=== PATIENT | female | born 1980 | race Caucasian/White ===

== ENCOUNTER 2020-02-23 08:27 | Emergency (ER) | payer OTHER ==
[~2020-02-23] VITALS: Ht 167.6 cm; Wt 99.3 kg
[2020-02-23 08:32] VITALS: Ht 167.6 cm; Wt 99.3 kg
[2020-02-23 09:31] LABS: CALCIUM 9.3 mg/dL (8.5-10.1); CARBON DIOXIDE 24.9 mmol/L (21-32); CHLORIDE SERUM 101 mmol/L (98-107); CREATININE SERUM 0.8 mg/dL (0.6-1.0); GFR1 > 60 mL/min; GLUCOSE SERUM 107 mg/dL (74-106); POTASSIUM SERUM 3.5 mmol/L (3.5-5.1); SODIUM SERUM 135 mmol/L (136-145)
[2020-02-23 09:44] LABS: BASOPHIL % 0.8 % (0-2); RED CELL DISTRIBUTION WIDTH 13.8 % (11.5-14.5)
[2020-02-23 10:07] LABS: PLATELET COUNT 542 x10^3mcL (130-400)
[2020-02-23 11:05] VITALS: BP 118/68
== END 2020-02-23 11:05 | disposition home or self-care (01) ==
LOC: ED 08:27
PROVIDERS: Emergency Medicine
DX: T81.30XA Disruption of wound, unspecified, initial encounter (principal); T81.49XA Infection following a procedure, other surgical site, initial encounter; B96.5 Pseudomonas (aeruginosa) (mallei) (pseudomallei) as the cause of diseases classified elsewhere

== ENCOUNTER 2020-04-10 09:07 | Inpatient (IN) | payer OTHER ==
[~2020-04-10] VITALS: Ht 167.6 cm; Wt 100.2 kg
--- NOTE | 2020-04-10 09:17 | NUR ---
PT TO BED 5 VIA WHEELCHAIR FROM TRIAGE
[2020-04-10 09:25] VITALS: Ht 167.6 cm; Wt 100.2 kg
--- NOTE | 2020-04-10 09:35 | NUR ---
PT BIB [facility] FROM HOME C/O RASH AND PAIN TO BILATERAL UPPER AND LOWER EXTREMITIES. PT STATES IT STARTED Saturday04/08/2020 WITH A RASH ON THE ARMS, THEN 04/09/2020 PT STARTED HAVING JOINT PAIN 03/12, TOOK BENADRYL FOR THE LAST 2 DAYS WITH NO RELIEF. DENIES ANY OTHER SYMPTOMS. PT AAOX4, NO SOB,NO DISTRESS. CALL LIGHT WITHIN REACH. WILL CONTINUE TO MONITOR PATIENT
--- NOTE | 2020-04-10 10:00 | NUR ---
MD BAHENA AT BEDSIDE WITH MSE
--- NOTE | 2020-04-10 10:47 | NUR ---
LAB AT BEDSIDE FOR BLOOD CULTURES
[2020-04-10 10:49] LABS: BASOPHIL % 0.2 % (0-2); PLATELET COUNT 359 x10^3mcL (130-400); RED CELL DISTRIBUTION WIDTH 13.1 % (11.5-14.5)
--- NOTE | 2020-04-10 10:55 | NUR ---
PT PROVIDED WITH TWO PILLOWS FOR ARMS AND NEW BLANKET. PT STATES PAIN MEDICATION IS WORKING HER PAIN IS NOW 8/10. PT IS AAOX4, NO DISTRESS, NO SOB. WILL CONTINUE TO MONITOR PATIENT. CALL LIGHT WITHIN REACH
[2020-04-10 11:02] LABS: ALBUMIN 3.6 g/dL (3.4-5.0); ALKALINE PHOSPHATASE 80 U/L (46-116); ALT/SGPT 19 U/L (14-59); AST/SGOT 13 U/L (15-37); BILIRUBIN TOTAL 0.3 mg/dL (0.20-1.00); C REACTIVE PROTEIN 10.4 mg/dL (<=0.9); CALCIUM 8.8 mg/dL (8.5-10.1); CARBON DIOXIDE 27.5 mmol/L (21-32); CHLORIDE SERUM 102 mmol/L (98-107); CREATININE SERUM 0.8 mg/dL (0.6-1.0); GFR1 > 60 mL/min; GLUCOSE SERUM 108 mg/dL (74-106); SODIUM SERUM 137 mmol/L (136-145); TOTAL PROTEIN, SERUM 6.9 g/dL (6.4-8.2)
[2020-04-10 11:04] LABS: POTASSIUM SERUM 2.9 mmol/L (3.5-5.1)
--- NOTE | 2020-04-10 11:18 | NUR ---
XRAY AT BEDSIDE
--- NOTE | 2020-04-10 12:07 | NUR ---
PT ASSISTED TO RESTROOM WAS ABLE TO AMBULATE WITH STEADY GAIT. PT PLACED BACK ON MONITOR. PROVIDED WITH WATER. PT AAOX4, NO DISTRESS, NO SOB. WILL CONTINUE TO MONITOR. CALL LIGHT WITHIN REACH
--- NOTE | 2020-04-10 12:09 | NUR ---
PT STATES PAIN TO RIGHT HAND AND LEGS IS BETTER. CONTINUES TO HAVE PAIN 10/10 TO LEFT ARM. WILL CONTINUE TO MONITOR PATIENT. CALL LIGHT WITHIN REACH
[2020-04-10 12:12] LABS: microscopic required? NO
--- NOTE | 2020-04-10 12:23 | NUR ---
SPOKE WITH TOMASA FROM [employer], SHE STATED SHE WILL SPEAK WITH HER DOCTOR.
[2020-04-10 12:31] LABS: ERYTHROCYTE SED RATE 46 mm/hr (0-20)
[2020-04-10 12:37] LABS: UA SPECIFIC GRAVITY 1.015 (1.005-1.035); urine erythrocyte NEGATIVE (NEGATIVE)
--- NOTE | 2020-04-10 14:03 | NUR ---
DR BAHENA AT BEDSIDE SPEAKING TO PT REGARDING TEST RESULTS AND POC. PT INFORMED DR BAHENA REGARDING INCR IN PAIN
--- NOTE | 2020-04-10 14:35 | NUR ---
AMB TO RESTROOM WITH STEADY GAIT
--- NOTE | 2020-04-10 14:49 | NUR ---
PT REQUESTING BENADRYL. PER DR BAHENA OK TO ADM MORPHINE DESPITE BP MAP 67. PT DENIES FEELING WEAKNESS, DIZZINESS, TIREDNESS
--- NOTE | 2020-04-10 16:10 | NUR ---
REPORT GIVEN TO HARSH
[2020-04-10 16:16] VITALS: BP 100/65
--- NOTE | 2020-04-10 16:16 | NUR ---
RECEIVED REPORT FROM ER NURSE KHAI MARMOLEJO. PATIENT IS RESTING IN BED, AAO TIMES 4. TELE #10 SHOWING NSR. DENIES CP/CARDIAC DISCOMFORT. PULSES STRONG IN ALL EXTREMITIES. TRACE EDEMA BLE. RESPIRATIONS EVEN AND UL ON RA. LUNG SOUNDS CTAB. ABD SOFT AND FLAT, NON-TENDER, BS ACTIVE IN ALL QUADRANTS. DENIES N/V/D. VOIDS FREELY. AMBULATORY WITHOUT ASSISTANCE. PATIENT HAS RASHES ON BUE, PHOTOGRAPHS TAKEN AND PLACED IN CHART. SKIN INTACT. IV SL TO L HAND, PATENT AND INTACT, NO SWELLING OR ERYTHEMA AT SITE, FLUSHING WELL. CALM AND COOPERATIVE. BED IN LOW POSITION, CALL LIGHT IN REACH, SAFETY MEASURES IN PLACE. WILL CONTINUE TO MONITOR.
--- NOTE | 2020-04-10 16:55 | NUR ---
PATIENT C/O PAIN TO L SHOULDER, ADMINISTERED PRN TYLENOL PER ORDER.
--- NOTE | 2020-04-10 18:50 | NUR ---
PATIENT C/O PAIN TO L SHOULDER AND ALL JOINTS. PAGED [facility] ON-CALL. PATIENT RESTING IN BED, RESPIRATION EVEN AND UL ON RA. DENIES CP/CARDIAC DISCOMFORT. NO ACUTE CHANGES THROUGHOUT SHIFT. BED IN LOW POSITION, CALL LIGHT IN REACH, SAFETY MEASURES IN PLACE. WILL CONTINUE TO MONITOR AND ENDORSE TO ONCOMING NIGHT NURSE.
--- NOTE | 2020-04-10 19:30 | NUR ---
RECEIVED PT FROM AM NURSE AT THIS TIME. AA/O X 4, ABLE TO MAKE NEEDS KNOWN, CLEAR SPEECH, DENIES HEADACHE/ DENIES DIZZINESS. TELE MONITOR #10, NSR, DENIES CHEST PAIN/ CHEST PRESSURE. PULSES PALPABLE, TRACE EDEMA TO BLE. LUNG SOUNDS CTA, RESPIRATIONS E/U ON RA. DENIES SOB. ACTIVE BS X 4 QUADS, ABD SOFT AND FLAT S/P TUMMY TUCK IN . DENIES N/V/D. VOIDS FREELY, BRP. RASH TO BUE, PINK AND ITCHY PER PT. IV TO LH SL, FLUSHES WELL, NO ERYTHEMA, NO INFILTRATION. PT HAVING LEFT SHOULDER JOINT PAIN. WILL PAGE YARD SUPERVISOR DOCTOR FOR ORDERS. ALL CONCERNS ADDRESSED, CALL BUTTON WITHIN REACH, WILL CONTINUE TO MONITOR.
[2020-04-10 19:53] VITALS: BP 89/54
[2020-04-10 19:55] VITALS: BP 100/63
--- NOTE | 2020-04-10 20:24 | NUR ---
PT COMPLAINING OF PAIN AND ITCHINESS. JIVE DEVELOPER DOCTOR PAGED. SPOKE WITH DR. JOHN. NEW ORDERS RECEIVED: BENADRYL 25 MG PO q6H PRN FOR ITCHINESS, TRAMADOL 50 MG PO q6H FOR PAIN. INFORMED DR. JOHN OF K OF 2.9 THIS MORNING AT 10 AM, ER REPLACED WITH 1 TAB PO OF KLOR-CON M20 40 MEQ AT 12:02, ASKED IF HE WANTED TO ORDER A REPEAT DRAW TO REPLACE K TONIGHT IV, DR. JOHN STATED NO, TO WAIT UNTIL 500 AM DRAW ON 04/11/20 IS FINE. NEW ORDERS RECEIVED AND CARRIED OUT. WILL CONTINUE TO MONITOR.
--- NOTE | 2020-04-10 20:47 | NUR ---
PT RECEIVED PRN TRAMADOL AND PRN BENADRYL AND SCHEDULED MEDS AT THIS TIME. WILL CONTINUE TO MONITOR FOR EFFECTIVENESS OF PRNS.
--- NOTE | 2020-04-10 23:01 | NUR ---
PAIN MEDICATION INEFFECTIVE. PAGED HUMAN RESOURCE MANAGER DOCTOR TWICE, AWAITING CALL BACK. WILL CALL A THIRD TIME.
--- NOTE | 2020-04-10 23:22 | NUR ---
CALL BACK RECEIVED FROM ON-CALL DR. JOHN, NEW ORDERS RECEIVED AND CARRIED OUT. TORADOL 30 MG IVP Q6H PRN AND BENADRYL 25 MG IVP GIVEN. PT AWAKE AT THIS TIME AND IN PAIN, STATES JOINT IN KNEES AND LEFT SHOULDER ARE STIFF, IT IS DIFFICULT FOR HER TO EXTEND HER ARM STRAIGHT. RESPIRATIONS E/U ON ROOM AIR, DENIES DIFFICULTY BREATHING, DENIES CHEST PAIN. TELE MONITOR #10, NSR, HR 91 BPM. CALL BUTTON WITHIN REACH, WILL CONTINUE TO MONITOR AND MANAGE PAIN.
--- NOTE | 2020-04-11 00:28 | NUR ---
CALLED [employer]PER[employer] DR. JOHN TO UPDATE- PT'S RASH IS SPREADING. RASH IS TO BUE, MOSTLY ON THE RIGHT EXTREMITY. COLOR WENT FROM LIGHT PINK AT BEGINNING OF SHIFT TO RED. RASH ALSO TO PT'S REAR END AND BACK OF RIGHT THIGH/ RIGHT LEG. PICTURES IN CHART. PT ALREADY ON SOLU-MEDROL BID. VS STABLE. DR. JOHN STATED NO NEW ORDERS AT THIS TIME, CONTINUE TO MONITOR RASH. WILL CONTINUE TO MONITOR.
[2020-04-11 05:48] VITALS: BP 101/64
--- NOTE | 2020-04-11 06:38 | NUR ---
PT COMPLAINED OF PAIN/ JOINT STIFFNESS. IV PRN TORADOL GIVEN. PT ALSO RECEIVED IV PRN BENADRYL FOR ITCHINESS. PT STATED IV SITE IN HAND IS GIVING DISCOMFORT. NO INFILTRATION, FLUSHING WELL. WILL ATTEMPT NEW IV START. NO ACUTE CHANGES OVERNIGHT, CALL LIGHT WITHIN REACH, WILL ENDORSE CARE TO AM NURSE.
[2020-04-11 06:48] LABS: BASOPHIL % 0.1 % (0-2); PLATELET COUNT 363 x10^3mcL (130-400); RED CELL DISTRIBUTION WIDTH 12.9 % (11.5-14.5)
--- NOTE | 2020-04-11 07:01 | NUR ---
ATTEMPTED IV START TO RFA, UNSUCCESSFUL. LH IV STILL INTACT BUT GIVING PT DISCOMFORT. WILL ENDORSE TO AM NURSE.
--- NOTE | 2020-04-11 07:05 | NUR ---
RECEIVED PATIENT FROM TRANSPORTATION SECURITY SCREENER RN. PATIENT A/OX4. NO C/O RESPIRATORY DISTRESS OR SOB. LUNG SOUNDS ARE CLEAR, PATIENT IS ON RM AIR. IV TO LEFT HAND IS SALINE LOCKED, FLUSHING WELL, C/D/I. ON TELE #10 NSR. BOWEL SOUNDS WERE HEARD. RASH TO BUTTOCK, BACK AND RIGHT LEG. HAS JOINT AND LEFT SHOULDER PAIN. TRACE EDEMA TO BLE. CALL LIGHT IS WITHIN REACH. WILL CONTINUE WITH PAIN MANAGEMENT.
[2020-04-11 07:09] LABS: CALCIUM 8.7 mg/dL (8.5-10.1); CARBON DIOXIDE 24.2 mmol/L (21-32); CHLORIDE SERUM 102 mmol/L (98-107); CREATININE SERUM 0.8 mg/dL (0.6-1.0); GFR1 > 60 mL/min; GLUCOSE SERUM 150 mg/dL (74-106); MAGNESIUM 2.6 mg/dL (1.8-2.4); POTASSIUM SERUM 3.7 mmol/L (3.5-5.1); SODIUM SERUM 137 mmol/L (136-145)
[2020-04-11 07:43] VITALS: BP 96/59
[2020-04-11 12:13] VITALS: BP 93/58
[2020-04-11 17:30] VITALS: BP 100/54
--- NOTE | 2020-04-11 19:10 | NUR ---
PATIENT SITTING UP IN BED. ASKING FOR TORADOL AND BENEDRYL BOTH DUE AROUND 1900. NO C/O SOB OR CHEST PAIN AT THIS TIME. IV TO LEFT HAND 20G C/D/I AND PATENT. COMFORT AND SAFETY MEASURES IN PLACE. WILL ENDORSE TO OCCUPATIONAL THER RNBROCK.
[2020-04-11] MEDS ORDERED: ULT50 PO (19:41)
[2020-04-11] MEDS ORDERED: BEN25 PO (19:41)
[2020-04-11] MEDS ORDERED: DELTASONE20 MG PO (19:43)
[2020-04-11] MEDS ORDERED: NASAL MIST126 ML (19:43)
--- NOTE | 2020-04-11 20:10 | NUR ---
PT RECIEVED AOO REG RESP NO SOPB R/A SAT 96%,ABDO IS SOFT WITH ACTIVE BOWEL SOUNDS,PT HAS HL TO THE RT HAND SITE PATENT AND INTACT AND ON TELE MONITOR AND IN NSR NO ECTOPY OR CHEST PAIN REPORTED AT THIS TIME,PT WAS SEEN BY DR BAILEY AND D/C TO GO HOME,WILL HAVE HER PAPERS READY AND WILL SNED HER HOME ORDER,CALL LIGHT EASY REACHED AND WILL CONTINUE TO MONITOR.
== END 2020-04-11 20:43 | disposition home or self-care (01) | DRG 556 ==
LOC: ED 09:07 → DU 15:02
PROVIDERS: Emergency Medicine; ADMIT Hospitalist; ATTEND Hospitalist
DX: M25.562 Pain in left knee (principal); K51.90 Ulcerative colitis, unspecified, without complications; L03.90 Cellulitis, unspecified; Z20.828 Contact with and (suspected) exposure to other viral communicable diseases; E87.6 Hypokalemia; Z79.899 Other long term (current) drug therapy; M25.561 Pain in right knee
CPT/HCPCS: G0378; J0696; J1200; J1885; J2270; J2405; J2920; J3475; J7030; J7060; Q0163